=== PATIENT | female | born 1985 | race Caucasian/White ===

== ENCOUNTER 2016-12-13 20:14 | Inpatient (IN) | payer OTHER ==
--- NOTE | ~2016-12-13 | DS ---
Unit #: [id number] #: [id number] Patient: JOY HARTMAN [id number] [facility] [address] [place] [address] [id number] MR#: [id number] NAME: JOY HARTMAN ROOM: P208 Age: 30 Sex: F Admission Date: 12/13/2016 : 1985 Discharge Date: 12/17/2016 Attending Physician: Stevie Thomas M.D. Primary Care Physician: Primary Care Physician No DISCHARGE SUMMARY REASON FOR ADMISSION Detox. DIAGNOSTIC STUDIES LABORATORY RESULTS: Urine drug screen positive for benzodiazepines and amphetamine. The patient's hepatitis C is reactive. HOSPITAL COURSE The patient was admitted to inpatient unit on 12/13/2016 and discharged on 12/17/2016. The patient was treated with detox monitoring and detox protocol. The patient responded well with expressive therapy, medication management, and psychoeducation. Subsequently, the patient was discharged with a plan to follow up in outpatient clinic. DISCHARGE MEDICATIONS None. DISCHARGE DIAGNOSES Psychiatric: 1. Opioid use disorder, severe. 2. Mood disorder, not otherwise specified. Secondary diagnosis: Deferred. Medical diagnoses: Hypertension; hepatitis C, reactive. Stressors: Psychosocial stressors. DISCHARGE INSTRUCTIONS The patient is to follow up in outpatient clinic as per dialysis social worker. CONDITION ON DISCHARGE The patient is pleasant and cooperative. Denied any psychotic symptom or any suicidal ideation. PROGNOSIS Guarded. DIET AND ACTIVITY As tolerated. Dictated by... Stevie Thomas M.D. Unit #: [id number] #: [id number] Patient: OJY HARTMAN SZC/modl TD: 12/17/2016 21:41 JOB #: [id number] DISCHARGE SUMMARY Page 1 of 1 X Stevie Thomas MD X DISCHARGE SUMMARY
--- NOTE | ~2016-12-13 | PN ---
Unit #: [id number] #: [id number] Patient: JOY CARRANZA [id number] [facility] [address] [place] [address] [id number] MR#: [id number] NAME: JOY CARRANZA ROOM: P208 Age: 30 Sex: F Admission Date: 12/13/2016 : 1985 Attending Physician: Stevie Thomas M.D. Admitting Physician: Stevie Thomas M.D. Primary Care Physician: Primary Care Physician Yani POLLACK NOTES DATE OF SERVICE: 12/16/2016 DISCUSSION Joy Carranza is a 30-year-old female. The patient interviewed, chart reviewed, and obtained information from nursing staff. The patient was compliant and cooperative. Mood was sad and dysphoric. The patient was able to maintain safe behavior, making progress, still having some withdrawal symptoms. Complete review of systems unremarkable. MENTAL STATUS EXAMINATION General appearance; the patient dressed casually, in hospital attire. Attention span and concentration, fair. Oriented in place and person. Mood and affect, sad and dysphoric. Speech, monotone. Thought process, concrete. The patient denied any thoughts of harming self or others or any psychotic symptom. Recent and remote memory, poor. Insight and judgment, poor. DIAGNOSIS Polysubstance abuse. ASSESSMENT AND PLAN Advised to continue with current medication and therapeutic protocol. If needed, consider further adjustment of medication. Dictated by... Maribel Glaser/sril TD: 12/16/2016 18:44 JOB #: [id number] Unit #: [id number] #: [id number] Patient: JOY CARRANZA PROGRESS NOTES Page 1 of 1 X Stevie Thomas MD PROGRESS NOTE
--- NOTE | ~2016-12-13 | CO ---
Unit #: [id number] #: [id number] Patient: JOY HARTMAN [id number] [place] [address] [id number] MR#: [id number] NAME: JOY HARTMAN ROOM: P208 Age: 30 Sex: F Admission Date: 12/13/2016 : 1985 Attending Physician: Stevie Thomas M.D. Primary Care Physician: Primary Care Physician No Consultation Date: 12/14/2016 CONSULTATION REPORT HISTORY OF PRESENT ILLNESS Joy reports a history of high blood pressures. She in the past has taken metoprolol and lisinopril. Recently, her blood pressures have been 150/103, 137/105, 133/84, and 127/87. She has no chest pain or shortness of breath. No headache and no other complaints. PHYSICAL EXAMINATION CARDIAC: Regular rate and rhythm. No murmur, gallop, or rub. RESPIRATORY: Clear to auscultation bilaterally. ASSESSMENT AND PLAN Hypertension. We will begin clonidine 0.1 mg q.12 hours p.r.n. blood pressures greater than 140/90. The patient was instructed to follow up with primary care provider for long-term blood pressure treatment. Dictated by... Dinorah Nguyen A.P.R.N. for Maribel Orta/michael TD: 12/14/2016 17:39 JOB #: [id number] CONSULTATION REPORT X DINORAH PARTIDA APRN X CONSULTATION REPORT
--- NOTE | ~2016-12-13 | PA ---
Unit #: [id number] #: [id number] Patient: JOY CARRANZA [id number] [facility] [address] [place] [address] [id number] I MR#: [id number] NAME: JOY CARRANZA ROOM: P208 Age: 30 Sex: F Admission Date: 12/13/2016 : 1985 Date of Assessment: 12/14/2016 Attending Physician: Stevie Thomas M.D. Admitting Physician: Stevie Thomas M.D. Primary Care Physician: Primary Care Physician No PSYCHIATRIC ASSESSMENT INFORMANTS The patient reliability, fair informant and chart reliability, good. CHIEF COMPLAINT Addiction to heroin. HISTORY OF PRESENT ILLNESS Ms. Joy Carranza is a 30-year-old female, who presented with the above-mentioned complaint. The patient reports that she is living with friends. The patient presented from [place], [place], and reported wanted a detox. The patient currently using IV heroin, reported IV meth abuse, reported opioid use, gabapentin, Xanax, alcohol, and marijuana. The patient's drug of choice is heroin. The patient reported last use of heroin and other substances was in the last 2 days. The patient reported she was in detox before. The patient reported feeling anxious and nervous. Denied any suicidal or homicidal ideation. Denied any psychotic symptom. The patient reported use of alcohol, age of onset 15; tobacco, age of onset 17; marijuana, age of onset 17; crack cocaine, age of onset 21; opioid, age of onset 27; amphetamine, age of onset 21; and prescription medication, age of onset 22. The patient reported it is causing problems with social, financial, legal, relationship problem, losing custody of child. The patient reported history of blackout, history of IV drug use, and withdrawal symptoms, but concerned about hepatitis. The patient reported anxious, nervous, rhinorrhea, irritability, diaphoresis, poor concentration, and restlessness. Needing inpatient admission at this time for psychiatric stabilization. PAST PSYCHIATRIC HISTORY Remarkable for history of previous detox. No history of any suicide attempt. FAMILY HISTORY/SOCIAL HISTORY The patient living with friends, unemployed, poor support system. No history of any abuse. History of depression in mother, OCD in father, alcohol problem on the mother's side of the family. MEDICAL HISTORY Unremarkable for any chronic medical condition, but the patient concerned about hepatitis and history of hypertension. Musculoskeletal; muscle strength and tone, no atrophy or abnormal movement. Gait normal. MEDICATION HISTORY None. Unit #: [id number] #: [id number] Patient: JOY CARRANZA ALLERGIES No known drug allergies. SUBSTANCE ABUSE HISTORY Please see above. REVIEW OF SYSTEMS HEENT: Eyes, clear. Ears, nose, mouth, and throat; clear. CARDIOVASCULAR: Unremarkable. RESPIRATORY: Unremarkable. GI: Unremarkable. : Unremarkable. SKIN: Unremarkable. LYMPH NODE: Unremarkable. NEUROLOGIC: Unremarkable. ENDOCRINE: Unremarkable. HEMATOLOGIC: Unremarkable. ALLERGIC/IMMUNOLOGIC: Unremarkable. MUSCULOSKELETAL: Muscle strength and tone, no atrophy or abnormal movement. Gait normal. MENTAL STATUS EXAMINATION CONSTITUTIONAL: Measurement of vital signs; temperature 97.8, heart rate 98, respiratory rate 18, blood pressure 150/103, height 5 feet 1 inch, and weight 160 pounds. GENERAL APPEARANCE: The patient dressed casually. The patient did not show any facial deformity. MUSCULOSKELETAL: Please see above. PSYCHIATRIC EXAMINATION Description of speech; regular rate, normal volume, normal articulation, and coherent. Description of thought process, goal directed. Description of association, intact. Description of abnormal psychotic thinking; the patient denied any hallucinations or delusions, but mood lability and substance abuse. Description of the patient's judgment: Concerning everyday activity, poor. Social situation, poor. Concerning psychiatric condition, poor. Complete mental status examination; oriented in time, place, and person. Recent and remote, fair. Attention span and concentration, fair. Language, able to name object and repeat phrases. Fund of knowledge, aware of current event and passive vocabulary intact. Mood and affect, sad and dysphoric. Insight and judgment, fair to poor. ASSETS AND LIABILITIES Assets, the patient is articulate and able to take care of her ADL. Liability, history of depression. ADMITTING DIAGNOSES Psychiatric: Opioid use disorder, severe, F11.20 and mood disorder, not otherwise specified, F32.9. Secondary diagnosis: Deferred. Medical diagnosis: Hypertension and rule out hepatitis. Stressors: Psychosocial stressors. Unit #: [id number] #: [id number] Patient: JOY CARRANZA PSYCHIATRIC PLAN AND TREATMENT GOAL AND DISCHARGE PLAN 1. Advised to admit the patient on the inpatient unit. Provide safe, supportive, and structured environment. 2. Ordered labs; CBC, CMP, UA, UDS, rule out hepatitis and test. 3. Precaution for detox and detox protocol and detox monitoring. 4. The patient to attend all the programing, group therapy, individual therapy, and medication management. If needed, consider further adjustment of medication. TREATMENT GOAL To attain euthymic mood, gain insight into her problem, and learn coping skills. DISCHARGE PLAN Plan to stabilize the patient and consider followup in outpatient program. ESTIMATED LENGTH OF STAY 5 days. Dictated by... Stevie Thomas M.D. JUD/michael TD: 12/14/2016 15:12 JOB #: [id number] PSYCHIATRIC ASSESSMENT X Stevie Thomas MD PSYCHIATRIC ASSESSMENT
--- NOTE | ~2016-12-13 | HP ---
Unit #: [id number] #: [id number] Patient: JOY HARTMAN [id number] [facility] [address] [place] [address] [id number] I MR#: [id number] NAME: JOY HARTMAN ROOM: P208 Age: 30 Sex: F Admission Date: 12/13/2016 : 1985 Attending Physician: Stevie Thomas M.D. Admitting Physician: Stevie Thomas M.D. Primary Care Physician: Primary Care Physician No HISTORY AND PHYSICAL History and physical completed on 12/14/2016 HISTORY OF PRESENT ILLNESS Joy is a 30-year-old female, admitted on 12/13/[address] [place] [address] for detox from heroin. PAST MEDICAL HISTORY Hypertension. PAST SURGICAL HISTORY section, tonsils, and adenoidectomy. SOCIAL HISTORY She smokes one pack of cigarettes daily. She drinks alcohol, [id number] times weekly and uses IV heroin daily. She is currently single and lives with her parents. FAMILY HISTORY Noncontributory. REVIEW OF SYSTEMS CONSTITUTIONAL: No fever or chills. HEENT: Denies any sore throat, ear pain or runny nose. CARDIOVASCULAR: Denies chest pain, irregular heart rhythm or palpitations. CHEST: Denies shortness of breath or cough. No hemoptysis. GASTROINTESTINAL: Denies nausea, vomiting, diarrhea or chronic constipation. ENDOCRINE: Denies history of increased thirst or urination. No recent significant weight loss or gain. GENITOURINARY: Denies dysuria, frequency, or hematuria. SKIN: Denies any rashes. HEMATOLOGIC: Denies history of increased bleeding or bruising. MUSCULOSKELETAL: Denies any hot, swollen joints. No generalized muscle pain. NEUROLOGIC: Denies problems with vision or speech. No frequent, severe headaches. No numbness, tingling or weakness in any extremities. Denies loss of bladder or bowel control. CURRENT MEDICATIONS None. ALLERGIES Fentanyl. Unit #: [id number] #: [id number] Patient: JOY HARTMAN PHYSICAL EXAMINATION GENERAL: Alert, oriented, and in no acute distress. VITAL SIGNS: Blood pressure 150/103, heart rate 98, temperature 97.9. HEIGHT: 5 feet 1 inch. WEIGHT: 160 pounds. SKIN: Warm and dry without rash or lesion. HEENT: Normocephalic. TMs not viewed. Oral and nasal passages clear. Conjunctivae clear. PERRLA. EOMs intact. NECK: Supple without lymphadenopathy or thyromegaly. HEART: Regular rate and rhythm without murmur. LUNGS: Clear. ABDOMEN: Soft, nontender. : Not done. EXTREMITIES: No evidence of cyanosis, clubbing or edema. Moves all without focal deficit. NEUROLOGICAL: Grossly within normal limits. Cranial Nerves: II: Visual hills are intact. III, IV AND : Extraocular movements are intact. Pupils are equal, round and reactive to light. V: Facial sensation is grossly normal. VII: Facial movements and expression are normal. VIII: Auditory acuity grossly intact. IX, X: Uvula is midline. Phonation is normal. XI: Patient shrugs shoulders and turns head normally. XII: Tongue protrudes in the midline. Sensory and Motor Function: Sensory and motor sensation is grossly normal. Motor: moves all extremities well. Coordination: Gait is normal. Deep Tendon Reflexes: Intact. IMPRESSION 1. Psychiatric admission. 2. Hypertension. 3. Obesity. RECOMMENDATIONS Psychiatric, per psychiatrist. MEDICAL I see no contraindications to participating in facility's activities. MEDICAL PROGNOSIS Good. MEDICAL CONDITION Stable. Dictated by... Kieran De LeonPSimónRDomingo SPRAGUE/melvi TD: 12/15/2016 07:00 JOB #: [id number] Unit #: [id number] #: [id number] Patient: JOY HARTMAN HISTORY AND PHYSICAL X HOMERO PARTIDA APRN X HISTORY AND PHYSICAL
--- NOTE | ~2016-12-13 | PN ---
Unit #: [id number] #: [id number] Patient: JOY CARRANZA [id number] [facility] [address] [place] [address] [id number] I MR#: [id number] NAME: JOY CARRANZA ROOM: P208 Age: 30 Sex: F Admission Date: 12/13/2016 : 1985 Attending Physician: Stevie Thomas M.D. Admitting Physician: Stevie Thomas M.D. Primary Care Physician: Primary Care Physician Yani CRUZ PROGRESS NOTES DATE 12/15/2016 DISCUSSION Joy Carranza is a 30-year-old female seen on 12/15/2016. The patient interviewed, chart reviewed. Obtained information from nursing staff. The patient compliant and cooperative, seclusive, isolative, guarded but able to maintain safe behavior. No aggression or any thoughts of harming self or others. The patient continues to be seclusive, isolative. Complete review of systems unremarkable. MENTAL STATUS EXAMINATION General appearance, the patient dressed casually. Attention span and concentration fair. Oriented to place and person. Mood and affect sad, depressed. Speech monotone. Thought process concrete. The patient denied any thoughts of harming self or others but guarded. Recent and remote memory poor. Insight and judgement poor. DIAGNOSES 1. Opiate use disorder severe. 2. Mood disorder NOS. ASSESSMENT/PLAN Advise to continue with current medication and therapeutic protocol. We will monitor response to medication and make further adjustment of medication. Dictated by... Maribel Glaser/rebeca TD: 12/17/2016 00:54 JOB #: [id number] Unit #: [id number] #: [id number] Patient: JOY CARRANZA PROGRESS NOTES Page 1 of 1 X Stevie Thomas MD PROGRESS NOTE
[2016-12-14 12:55] LABS: BASOPHIL% 0.4 % (0-2.5); EOSINOPHIL# 0.2 X10e3 (0-0.7); EOSINOPHIL% 1.4 % (0.0-7.0); HEMATOCRIT 44.5 % (35.0-45.0); HEMOGLOBIN 14.7 gm/dL (12.0-16.0); LYMPHOCYTE# 2.9 X10e3 (1.0-3.5); LYMPHOCYTE% 23.2 % (17.0-45.0); MEAN CELL VOLUME 86.6 FL (83-96); MEAN CORPUSCULAR HEMOGLOBIN 28.6 PG (28-34); MEAN PLATELET VOLUME 9.6 FL (6.5-11.5); MONOCYTE# 0.9 X10e3 (0-1.0); NEUTROPHIL# 8.5 X10e3 (1.5-7.1); PLATELET COUNT 287 X10e3 (140-420); RED BLOOD COUNT 5.14 X10e (3.90-5.30); RED CELL DISTRIBUTION WIDTH 13.9 % (11.0-15.5); WHITE BLOOD COUNT 12.5 X10e3 (4.0-10.5)
[2016-12-14 12:57] LABS: DIFF IND NO
[2016-12-14 13:36] LABS: ALBUMIN SERUM 4.1 g/dL (3.5-5.0); ALKALINE PHOSPHATASE 70 U/L (32-92); ALT (SGPT) 76 U/L (10-40); AST (SGOT) 55 U/L (10-42); BILIRUBIN,TOTAL 0.6 mg/dL (0.2-2.0); BLOOD UREA NITROGEN 13 mg/dL (9-23); CALCIUM SERUM 9.6 mg/dL (8.4-10.2); CARBON DIOXIDE 25 mmol/L (22-31); CHLORIDE 106 mmol/L (100-111); CREATININE SERUM 0.5 mg/dL (0.6-1.4); GLOM FILT RATE Estimated ABOVE60 mL/min (>60); GLUCOSE FASTING 70 mg/dL (70-110); POTASSIUM 4.4 mmol/L (3.5-5.1); PROTEIN TOTAL SERUM 7.7 g/dL (6.0-8.3); SODIUM 138 mmol/L (135-145)
[2016-12-14 13:45] LABS: THYROID STIMULATING HORMONE 0.97 uIU/ml (0.34-5.60)
[2016-12-14 13:52] LABS: FREE THYROXIN (T4) 0.99 ng/dL (0.58-1.64)
[2016-12-15 09:27] LABS: URINE APPEARANCE CLEAR; URINE BILIRUBIN NEG (NEG); URINE BLOOD NEG (NEG); URINE COLOR YELLOW; URINE GLUCOSE NEG (NEG); URINE KETONE NEG (NEG); URINE LEUKOCYTE ESTERASE NEG (NEG); URINE NITRATE NEG (NEG); URINE PROTEIN NEG (NEG); URINE SPECIFIC GRAVITY 1.014 (1.003-1.035); URINE UROBILINOGEN 0.2 MG/DL (NEG)
[2016-12-15 10:18] LABS: AMPHETAMINE POS (NEG); BARBITURATES NEG (NEG); BENZODIAZEPINES POS (NEG); COCAINE NEG (NEG); MARIJUANA NEG (NEG); OPIATES NEG (NEG); TRICYCLIC ANTIDEPRESSANTS NEG (NEG); U METHADONE NEG (NEG)
[2016-12-17 19:02] LABS: HA AB IGM (HEPPAN) Nonreactive (Nonreactive); HB CORE AB IGM (HEPPAN) Nonreactive (Nonreactive); HB S AG (HEPPAN) Nonreactive (Nonreactive); HEP C AB (HEPPAN) Reactive (Nonreactive)
== END 2016-12-17 13:15 | DRG 897 ==
LOC: P2S 20:14
PROVIDERS: Psychiatry & Neurology Psychiatry
PROC: HZ2ZZZZ Detoxification Services for Substance Abuse Treatment (ICD-10-PCS; principal; 2016-12-13)
DX: F11.20 Opioid dependence, uncomplicated (principal); F39 Unspecified mood [affective] disorder; I10 Essential (primary) hypertension; F32.9 Major depressive disorder, single episode, unspecified; F17.210 Nicotine dependence, cigarettes, uncomplicated; E66.9 Obesity, unspecified; F19.10 Other psychoactive substance abuse, uncomplicated
CPT/HCPCS: 80053; 80074; 80307; 81003; 84439; 84443; 84703; 85025; 86592; 87522; J3411